=== PATIENT | female | born 2000 | race Caucasian/White ===

== ENCOUNTER 2020-10-01 11:38 | Emergency (ER) | payer OTHER ==
[~2020-10-01] VITALS: Ht 177.8 cm; Wt 63.5 kg
[2020-10-01] MEDS ORDERED: CIPRO500 MG PO (13:39)
== END 2020-10-01 13:59 | disposition home or self-care (01) ==
LOC: ED 11:38
DX: N12 Tubulo-interstitial nephritis, not specified as acute or chronic (principal); F17.200 Nicotine dependence, unspecified, uncomplicated
CPT/HCPCS: 81001; 84703; 96372; 99284; J0696